=== PATIENT | female | born 1980 | race Caucasian/White ===

== ENCOUNTER → 2023-07-18 09:49 | Outpatient (REF) | payer BC, SELFPAY | LOC: HWWDC 09:49 | PROVIDERS: ATTENDING PHYSICIAN Obstetrics & Gynecology; FAMILY PHYSICIAN Physician Assistant Medical | DX: Z12.31 Encounter for screening mammogram for malignant neoplasm of breast (principal) | CPT/HCPCS: 77063; 77067 ==

== ENCOUNTER 2024-08-02 19:50 | Emergency (ER) | payer BC, SELFPAY ==
[2024-08-02 19:52] VITALS: BP 120/72
[2024-08-02 20:27] VITALS: BMI 22.9
--- NOTE | 2024-08-02 22:35 | ED.SKININJ ---
HPI-Injury
General
Chief Complaint: Skin Surface Trauma
Source: patient
Time Seen by Provider: 08/02/24 22:14
History of Present Illness-Injury
Initial Injury comments:
44-year-old female presents with laceration to left thumb she sustained today. She was cutting watermelon and slipped with a knife. Last tetanus unknown. No other complaints at this time
Past History
Past History
ED Past Medical History: Asthma and Other (allergies)
ED Past Surgical History:
Social History
Tobacco: Non-smoker
Alcohol: None
Drug: None
Personal:
Living: with family
Phy Exam
Physical Exam
Physical Exam:
General: Well-appearing female no acute respiratory distress
Skin: 1.5 cm laceration proximal radial volar aspect left thumb superficial in nature without tendon or nerve involvement.
Musculoskeletal exam: Full range of motion left thumb. She has good sensation to the left thumb.
Course
Orders/Labs/Results
Orders:
Orders
08/02/24 22:35
Tetanus/Diphth/Acelpertussis [Adacel] 0.5 ml IM .ONCE ONE
Vital Signs
Initial and Last Documented VS:
Initial Vital Signs
Temp Pulse Resp BP Pulse Ox
98.2 F 75 20 120/72 98
08/02/24 19:52 08/02/24 19:52 08/02/24 19:52 08/02/24 19:52 08/02/24 19:52
Last Documented Vital Signs
Temp Pulse Resp BP Pulse Ox
98.2 F 75 20 120/72 98
08/02/24 19:52 08/02/24 19:52 08/02/24 19:52 08/02/24 19:52 08/02/24 19:52
MDM/Problems Addressed
Differential Diagnosis Includes:
Laceration left thumb. No tendon involvement. The wound was copiously irrigated with saline anesthetized with 1% lidocaine in a local fashion and was closed using 5-0 Prolene sutures. Simple erupted sutures were required in total #3 were required
to provide wound edge approximation and hemostasis. A gauze dressing was applied. Tetanus vaccine updated. Stable for discharge with wound care instructions
*Critical Care Note
Total Time (30-74mins, 75-104mins- exclusive of procedures): Not Applicable
ED Attending Note
-
Portions of this chart may have been created with voice recognition software.� Occasional wrong word or��sound alike� substitutions may have occurred due to the inherent limitations of voice recognition software.
Discharge Plan
Departure
Patient Disposition: Home (Routine Discharge)
Date of Disposition: 08/02/24
Time of Disposition: 22:38
Patient with high blood pressure during this ER visit?: No
Discharge Problem:
Laceration
Instructions: Laceration Repair With Stitches (DC)
Prescriptions:
No Action
fluticasone propionate 1 SPRAY spray,suspension
2 spray intranasal BID PRN (Reason: allergies)
Dulera 13 GM HFA aerosol inhaler
2 puff IH BID
norethindrone-e.estradiol-iron [Key Fe 1.5/30 (28)] 1.5 mg-30 mcg (21)/75 mg (7) Tablet
1 tab PO HS
fexofenadine-pseudoephedrine [Shena-D 24 Hour] 180-240 mg Tablet Extended Release 24 Hr
1 tab PO DAILY
sertraline 25 mg Tablet
25 mg PO DAILY
albuterol sulfate 90 mcg/actuation Hfa Aerosol Inhaler
2 puff INHALATION QID PRN (Reason: asthma)
acetaminophen-codeine [acetaminophen-codeine] 300-30 mg tablet
1 - 2 tab PO Q4HPRN PRN (Reason: Mod-severe pain) Qty: 30 0RF
cefuroxime axetil [cefuroxime axetil] 500 mg tablet
500 mg PO BID 7 Days Qty: 14 0RF
ondansetron [ondansetron] 4 mg tablet,disintegrating
4 mg PO Q8H PRN (Reason: Nausea and Vomiting) 10 Days Qty: 15 0RF
Referrals:
NONE,* [Active] -
Activity Restrictions/Additional Instructions:
Keep clean. Apply antibacterial ointment daily. Have sutures removed in 10 to 12 days. Return if needed otherwise
Interventions
Interventions:
*Risk Screen - Suicide Last Done: 08/02/24 22:20
*General Assessment Last Done: 08/02/24 19:52
*Neglect/Abuse Screening Last Done: 08/02/24 22:20
*ED- Fall Risk Assessment Last Done: 08/02/24 20:28
*ED COVID-19 Vaccine History Last Done: 08/02/24 20:28
*Nursing Disposition Last Done: 08/02/24 22:47
ED- Neurological Assessment Last Done: 08/02/24 20:30
ED-Skin Assessment Last Done: 08/02/24 20:30
Discharge Date and Time
Discharge Date/Time: 08/02/24 22:47
Print Language: [id number]
[2024-08-02] MEDS: ADACEL 0.5 ML IM (22:38)
== END 2024-08-02 22:47 | disposition home or self-care (01) ==
LOC: EMR 19:50
PROVIDERS: EMERGENCY PHYSICIAN Emergency Medicine
DX: S61.012A Laceration without foreign body of left thumb without damage to nail, initial encounter (principal); W26.0XXA Contact with knife, initial encounter; Z23 Encounter for immunization; J45.909 Unspecified asthma, uncomplicated
CPT/HCPCS: 12001; 90471; 99282; 90715

== ENCOUNTER → 2024-08-28 09:54 | Outpatient (REF) | payer BC, SELFPAY | LOC: HWWDC 09:54 | PROVIDERS: ATTENDING PHYSICIAN Nurse Practitioner Family; FAMILY PHYSICIAN Physician Assistant Medical | DX: Z12.31 Encounter for screening mammogram for malignant neoplasm of breast (principal) | CPT/HCPCS: 77063; 77067 ==

== ENCOUNTER → 2024-09-11 09:27 | Outpatient (REF) | payer BC, SELFPAY | LOC: WDC 09:27 | PROVIDERS: ATTENDING PHYSICIAN Nurse Practitioner Family; FAMILY PHYSICIAN Physician Assistant Medical | DX: R92.8 Other abnormal and inconclusive findings on diagnostic imaging of breast (principal) | CPT/HCPCS: 76642 ==

== ENCOUNTER → 2025-04-23 11:44 | Outpatient (REF) | payer BC, SELFPAY | LOC: PAVMRI 11:44 | PROVIDERS: ATTENDING PHYSICIAN Nurse Practitioner Adult Health; FAMILY PHYSICIAN Physician Assistant Medical | DX: R42 Dizziness and giddiness (principal) | CPT/HCPCS: 70553; A9575 ==